=== PATIENT | female | born 1995 | race African-American/Black ===

== ENCOUNTER 2019-02-23 11:40 | Emergency (ER) | payer SELFPAY | END 2019-02-23 13:20 | disposition left against medical advice (07) | LOC: ERS 11:40 | DX: Z53.21 Procedure and treatment not carried out due to patient leaving prior to being seen by health care provider (principal) ==

== ENCOUNTER 2019-11-16 09:13 | Emergency (ER) | payer OTHER, SELFPAY ==
[2019-11-16 18:26] LABS: SARS-CoV-2 MS2 Positive; SARS-CoV-2 N Gene Positive; SARS-CoV-2 S Gene Positive; SARS-CoV-2 by NAA DETECTED (NotDetected); SARS-CoV-2 orf1ab Positive
== END 2019-11-16 10:08 | disposition home or self-care (01) ==
LOC: ERS 09:13
DX: U07.1 COVID-19 (principal); I10 Essential (primary) hypertension
CPT/HCPCS: 87635; 99283; U0003

== ENCOUNTER 2019-12-20 17:03 | Emergency (ER) | payer SELFPAY | END 2019-12-20 17:50 | disposition home or self-care (01) | LOC: ERS 17:03 | DX: K02.9 Dental caries, unspecified (principal); K08.89 Other specified disorders of teeth and supporting structures; I10 Essential (primary) hypertension | CPT/HCPCS: 99282 ==

== ENCOUNTER 2021-01-23 06:37 | Emergency (ER) | payer BC, SELFPAY ==
[2021-01-23] MEDS ORDERED: Ibuprofen 200 MG TAB ONE (06:58)
== END 2021-01-23 07:16 | disposition home or self-care (01) ==
LOC: ERS 06:37
DX: K04.7 Periapical abscess without sinus (principal); I10 Essential (primary) hypertension
CPT/HCPCS: 99283